=== PATIENT | male | born 2000 | race Caucasian/White ===

== ENCOUNTER → 2023-03-12 | Emergency (ER) | payer OTHER ==
[~2023-03-12] MED LIST: ACETAMINOPHEN 325 MG TABLET ONE
--- OUTSIDE RECORDS SUMMARY | 2023-03-12 10:36 | XMS REPORT | Continuity of Care Document ---
Author Name Unknown Address [address] [place] [address] [place], [place] [address]ect Address [address] [facility] 1 [address] [place] [address] Care Team Providers Care Manager Information Name Role Phone Unavailable Unavailable Unavailable Encounters Start Date/Time End Date/Time Encounter Type Admission Type Attending Clinicians Care Facility Care Department Encounter ID Source 2023-02-15 13:20:00 2023-02-15 13:20:[address] [facility] [id number] Tristian Archibald
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
[2023-03-12 12:24] VITALS: BP 100/82; TEMP 98; O2SAT 100
== END ==
LOC: ER 10:34
DX: R51.9 Headache, unspecified (principal); V47.5XXA Car driver injured in collision with fixed or stationary object in traffic accident, initial encounter; Z88.0 Allergy status to penicillin
CPT/HCPCS: 70450

== ENCOUNTER 2023-11-10 13:34 | Emergency (ER) | payer OTHER ==
--- OUTSIDE RECORDS SUMMARY | 2023-11-10 13:36 | XMS REPORT | Continuity of Care Document ---
Author Name Unknown Address [address] [place] [address]. [address] th[address] Address [address] [facility] [address] [place] [address] Care Team Providers Care Hogshead Roller Name Role Phone Unavailable Unavailable Unavailable Encounters Start Date/Time End Date/Time Encounter Type Admission Type Attending Clinicians Care Facility Care Department Encounter ID Source 2023-02-15 13:20:00 2023-02-15 13:20:00 Outpatient SFA [facility] [id number] Tristian Archibald
[2023-11-10] MEDS ORDERED: NA CHLORIDE 0.9% 1,000 ML ONE (14:16)
[2023-11-10] MEDS ORDERED: FENTANYL CITR 100 MCG/2 ML ONE (14:16)
[2023-11-10] MEDS ORDERED: ONDANSETRON 4 MG/2 ML VIAL ONE (14:18)
[2023-11-10 14:41] LABS: Absolute Eosinophils 0.1 K/uL (0-0.5); Absolute Lymphocytes (CBC) 2.2 K/uL (0.7-4.9); Absolute Monocytes 0.5 K/uL (0.1-1.3); Basophils % 0.5 % (0-1.3); Eosinophils % 2.1 % (0-4.4); Hematocrit 42.7 % (39.6-49.0); Hemoglobin 14.5 g/dL (13.6-17.9); Lymphocytes % 36.8 % (15.3-44.8); MCH 31.3 pg (27.0-35.0); MCHC 34.1 g/dL (32.0-36.0); MCV 91.9 fL (80-100); MPV 7.6 fL (7.6-11.3); Monocytes % 9.3 % (3.3-12.3); Neutrophils % 51.3 % (41.7-73.7); Nucleated Red Blood Cells % 0.1 % (0-0); Platelets 246 thou/uL (152-406); RBC Red Blood Cell Count 4.64 M/uL (4.33-5.43); Red Cell Distribution Width 13.1 % (12.1-15.2)
[2023-11-10 14:58] LABS: Anion Gap 8.5 mEq/L (5.0-15.0); Potassium 3.5 mEq/L (3.5-5.1)
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
--- NOTE | 2023-11-10 15:23 | RAD REPORT ---
EXAM: CT CHEST, ABDOMEN AND PELVIS WITH CONTRAST CLINICAL INDICATION: [facility] TECHNIQUE: CT chest, abdomen and pelvis was performed, following the administration of contrast, as p er department protocol. Axial, sagittal and coronal reconstructions were obtained. One or more of the following dose reduction techniques were used: Automated exposure control, adjustment of the mA a nd/or kV according to patient size, and/or iterative reconstruction. Unless otherwise specified, incidental findings do not require dedicated imaging follow-up. COMPARISON: No prior exam. FINDINGS: LUNGS: No evidence of airspace or interstitial process. No nodules. PLEURA: No pleural effusion. No pneumothorax. MEDIASTINUM AND LYMPH NODES: No mediastinal mass or fluid collection. Normal size mediastinal, hilar, and axillary lymph nodes. OSSEOUS STRUCTURES AND CHEST WALL: Intact. Mild bilateral gynecomastia. LIVER: Normal in size and contour. No focal lesion or biliary dilatation. PANCREAS: No mass, ductal dilation, or javier-pancreatic fluid. SPLEEN: Normal size. No focal lesion. ADRENALS: Normal; no mass. KIDNEYS: Normal size and contour. No hydronephrosis. URINARY BLADDER: Normal contour. GASTROINTESTINAL TRACT: No bowel obstruction, free air, significant free fluid or abscess. APPENDIX: Normal appendix. LYMPH NODES: No lymphadenopathy. MUSCULOSKELETAL: No acute or suspicious osseous abnormality. Chronic bilateral spondylolysis suspecte d at L4-5 without significant spondylolisthesis. OTHER: IMPRESSION: No acute or significant abnormalities seen in the chest, abdomen or pelvis.
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
[2023-11-10 18:01] VITALS: TEMP 97.6
[2023-11-10 18:03] VITALS: BP 132/91; O2SAT 99
== END 2023-11-10 15:48 | disposition home or self-care (01) ==
LOC: ER 13:34
DX: M54.2 Cervicalgia (principal); M54.9 Dorsalgia, unspecified; R51.9 Headache, unspecified; V43.62XA Car passenger injured in collision with other type car in traffic accident, initial encounter
CPT/HCPCS: 96361; 85025; 80048; 36415; 86900; 86850; 86901; 70450; 72125; 71260; 74177; 96374; 99284; Q9967; J3010; J2405; J7030